=== PATIENT | female | born 1975 | race Caucasian/White ===

== ENCOUNTER 2018-09-23 12:49 | Emergency (ER) | payer MEDICAID, OTHER ==
[2018-09-23] MEDS ORDERED: Ondansetron INJ* 2 MG/ML VIAL IV ONE (13:24)
[2018-09-23] MEDS ORDERED: NS 0.9% 1000 ML* 1,000 ML IV ONE (13:24)
[2018-09-23] MEDS ORDERED: Morphine VIAL* 4 MG/ML VIAL (1 ml vial) IV ONE (13:26)
--- NOTE | 2018-09-23 13:28 | ED ---
Abdominal Pain/Female - HPI Summary HPI Summary: This pt is a 43 y/o female presenting to [facility] c/o bilateral lower abdominal pain, right greater than left, today. Pt reports her lower abd pain began at 12: 00 today suddenly. She describes a nonradiating sharp/stabbing pain. Pt reports she had similar symptoms last month and 2 days later she had her period. She is due to have her menses in 2 days. Denies fever, chills, nausea, vomiting, diarrhea, vaginal bleeding, vaginal discharge. She denies any PMHx. Denies hx of appendectomy. - History of Current Complaint Chief Complaint: EDAbdPain Stated Complaint: ABD PAIN Time Seen by Provider: 09/23/18 13:00 Hx Obtained From: Patient Hx Last Menstrual Period: 05/23/14 Onset/Duration: Lasting Hours, Still Present Timing: Hours Severity Currently: Moderate Pain Intensity: 6 Pain Scale Used: 0-10 Numeric Location: Other - lower abdominal, R>L Radiates: No Character: Sharp Aggravating Factor(s): Nothing Alleviating Factor(s): Nothing Associated Signs and Symptoms: Negative: Fever, Chest Pain, Constipation, Vaginal Bleeding, Nausea, Vomiting, Diarrhea Allergies/Adverse Reactions: Allergies Allergy/AdvReac Type Severity Reaction Status Date / Time No Known Allergies Allergy Verified 05/26/14 21:50 PMH/Surg Hx/FS Hx/Imm Hx Endocrine/Hematology History: Denies: Hx Diabetes Cardiovascular History: Denies: Hx Hypertension Infectious Disease History: No Infectious Disease History: Denies: Traveled Outside the [place] in Last 30 Days - Family History Known Family History: Positive: Cardiac Disease - Social History Alcohol Use: None Substance Use Type: Reports: None Smoking Status (MU): Light Every Day Tobacco Smoker Type: Cigarettes Amount Used/How Often: 1/2M PPD Have You Smoked in the Last Year: Yes Review of Systems Negative: Fever, Chills Negative: Chest Pain Negative: Shortness Of Breath Positive: Abdominal Pain. Negative: Vomiting, Diarrhea, Nausea Negative: discharge, other - NEGATIVE: vaginal bleeding All Other Systems Reviewed And Are Negative: Yes Physical Exam - Summary Physical Exam Summary: Appearance: Well appearing, no pain distress Skin: warm, dry, reflects adequate perfusion Head/face: normal Eyes: EOMI, LEVI ENT: normal Neck: supple, nontender Respiratory: CTA, breath sounds present Cardiovascular: RRR, pulses symmetrical Abdomen: soft, tenderness in the right lower quadrant Musculoskeletal: normal, strength/ROM intact Neuro: normal, sensory motor intact, A&Ox3 Triage Information Reviewed: Yes Vital Signs On Initial Exam: Initial Vitals Temp Pulse Resp BP Pulse Ox 98.4 F 67 18 158/73 100 09/23/18 12:50 09/23/18 12:50 09/23/18 12:50 09/23/18 12:50 09/23/18 12:50 Vital Signs Reviewed: Yes Diagnostics - Vital Signs Vital Signs Temp Pulse Resp BP Pulse Ox 09/23/18 12:50 98.4 F 67 18 158/73 100 - Laboratory Result Diagrams: 09/23/18 14:31 09/23/18 14:33 Lab Statement: Any lab studies that have been ordered have been reviewed, and results considered in the medical decision making process. - CT Abdomen/Pelvis CT CT Interpretation Completed By: Radiologist Summary of CT Findings: IMPRESSION: Hepatomegaly with fatty infiltration of the liver. Normal appendix. Dr. Candelaria has reviewed this report. Re-Evaluation - Re-Evaluation First Eval Re-Evaluation Time: 16:53 Comment: I reviewed the lab and CT results with the pt. She will be discharged home. Abdominal Pain Fem Course/Dx - Course Course Of Treatment: Pt is a 43 y/o female who presents with bilateral lower abdominal pain, right greater than left, today since 12:00 suddenly. She describes a nonradiating sharp/stabbing pain. Blood work, urinalysis, CT were obtained. Lab results are unremarkable. Abdomen/Pelvis CT shows hepatomegaly with fatty infiltration of the liver. Normal appendix. In the ED course the pt was given IV fluids, Zofran, morphine. Pt will be discharged home with follow up from OBGYN. She is instructed to return to the ED for any worsening or new symptoms. - Diagnoses Differential Diagnosis: Positive: Appendicitis, Diverticulitis, Renal Colic, Urinary Tract Infection Provider Diagnoses: Abdominal pain Discharge - Sign-Out/Discharge Documenting (check all that apply): Patient Departure - Discharge home - Discharge Plan Condition: Stable Disposition: HOME Patient Education Materials: Abdominal Pain (ED) Referrals: [facility] [Outside] Felipe Orozco MD [Medical Doctor] - Additional Instructions: Please call Dr. Orozco's office, [place], to schedule a follow up. RETURN TO THE ED FOR ANY WORSENING OR NEW SYMPTOMS. - Billing Disposition and Condition Condition: STABLE Disposition: Home - Attestation Statements Document Initiated by Pattie: Yes Documenting Scribe: Vanessa Hurtado Provider For Whom Pattie is Documenting (Include Credential): Kennedy Candelaria MD Scribe Attestation: Vanessa Moody, scribed for Kennedy Candelaria MD on 09/23/18 at 1701. Scribe Documentation Reviewed: Yes Provider Attestation: The documentation as recorded by the Vanessa prasad accurately reflects the service I personally performed and the decisions made by , Kennedy Candelaria MD Status of Scribe Document: Viewed
[2018-09-23 13:59] LABS: Urine Appearance Clear; Urine Bilirubin Negative (Negative); Urine Blood Negative (Negative); Urine Color Yellow; Urine Glucose Negative (Negative); Urine Ketones Negative (Negative); Urine Nitrite Negative (Negative); Urine Protein Negative (Negative); Urine Specific Gravity 1.009 (1.010-1.030); Urine Urobilinogen Negative (Negative)
[2018-09-23 14:43] LABS: ABS Basophils 0.1 10^3/ul (0-0.2); ABS Eosinophils 0.3 10^3/ul (0-0.6); ABS Lymphocytes 3.1 10^3/ul (1.0-4.8); ABS Neutrophils 3.7 10^3/ul (1.5-7.7); ABS Nucleated RBC 0 10^3/ul; Eosinophil % 3.3 %; Hematocrit 41 % (35-47); Mean Corpuscular HGB Conc 35 g/dl (31-36); Mean Corpuscular Hemoglobin 32 pg (27-31); Mean Corpuscular Volume 92 fL (80-97); Mean Platelet Volume 8.8 fL (7.4-10.4); Nucleated Red Blood Cells % 0; Platelet Count 311 10^3/ul (150-450); Red Blood Count 4.44 10^6/ul (4.00-5.40); Red Cell Distribution Width 14 % (10.5-15); White Blood Count 8.2 10^3/ul (3.5-10.8)
[2018-09-23 14:50] LABS: Activated Partial Thrombo Time 29.8 seconds (26.0-36.3); INR 0.94 (0.77-1.02)
[2018-09-23 15:00] LABS: ALT 12 U/L (7-52); AST 13 U/L (13-39); Albumin 4.3 g/dL (3.2-5.2); Albumin/Globulin Ratio 1.4 (1-3); Alkaline Phosphatase 58 U/L (34-104); Anion Gap 6 mmol/L (2-11); BUN/Creatinine Ratio 9.7 (8-20); Blood Urea Nitrogen 7 mg/dL (6-24); CO2 Carbon Dioxide 23 mmol/L (22-32); Calcium 9.3 mg/dL (8.6-10.3); Chloride 107 mmol/L (101-111); Glucose 93 mg/dL (70-100); Potassium 3.8 mmol/L (3.5-5.0); Sodium 136 mmol/L (135-145); Total Protein 7.3 g/dL (6.4-8.9)
[2018-09-23 15:06] LABS: HCG Pregnancy < 0.60 mIU/mL
[2018-09-23] MEDS ORDERED: Iohexol 300* (CONTRAST) 10 ML SDV IV ONE (15:22)
[2018-09-23 17:27] VITALS: BP 96/65
== END 2018-09-23 17:15 | disposition home or self-care (01) ==
LOC: ED 12:49
DX: R10.32 Left lower quadrant pain (principal); R10.31 Right lower quadrant pain; K76.0 Fatty (change of) liver, not elsewhere classified; F17.210 Nicotine dependence, cigarettes, uncomplicated
CPT/HCPCS: 36415; 74177; 80053; 81003; 83605; 83690; 84702; 85025; 85610; 85730; 96361; 96374; 96375; 99283; J2270; J2405; Q9967